=== PATIENT | male | born 1935 | race Caucasian/White ===

== ENCOUNTER 2022-06-06 09:13 | Emergency (ER) | payer MEDICARE, MEDICAID, SELFPAY ==
[2022-06-06] VITALS (8 sets, daily range): BP systolic 76–97; BP diastolic 55–67; PULSE 56–69; RESP 7–14; TEMP 36.4; O2SAT 90–99; BMI 37.5
--- NOTE | 2022-06-06 09:31 | EKG12_ITS ---
Test Reason : ALT LOC Blood Pressure : / mmHG Vent. Rate : 058 BPM Atrial Rate : 000 BPM P-R Int : 000 ms QRS Dur : 102 ms QT Int : 434 ms P-R-T Axes : 000 -05 004 degrees QTc Int : 426 ms Atrial fibrillation with slow ventricular response Abnormal ECG Confirmed by EUGENE JOLLEY, ROSIE ([id number]), medical transcription editor JAYESH GARCIA ([id number]) on 06/09/2022 9:40:51 AM Referred By: ANAIS Confirmed By:LULU KNIGHT MD
--- NOTE | 2022-06-06 09:32 | EDS_ITS ---
HPI <NATASHA Morales - Last Filed: 06/06/22 17:56> History of Present Illness Chief Complaint: Alt LOC Narrative Narrative: 87-year-old male with history of syncope, hypertension who lives at a [facility] facility presents the emergency part for altered mental status. Patient is normally alert and oriented, they were giving his breakfast today when they noticed that he was falling asleep and not answering questions appropriately. There is no evidence of any fever or chills at the facility, patient is arousable however lethargic. Patient is bradycardic, hypotensive. Patient denies any pain. Negative for any injury. [facility] <NATASHA Morales - Last Filed: 06/06/22 17:56> [facility] Medical History (Updated 06/06/22 @ 10:[address] Cesar Rosenberg MD) Acute on chronic diastolic (congestive) heart failure Essential (primary) hypertension Heart failure Lymphocytic colitis Major depressive disorder, recurrent, unspecified Obesity, unspecified Obstructive sleep apnea (adult) (pediatric) Other nonthrombocytopenic purpura Raynaud's syndrome without gangrene Shortness of breath Syncope and collapse Urgency of urination Vitamin B12 deficiency anemia, unspecified Weakness Home Medications albuterol sulfate 0.63 mg/3 mL solution for nebulization 0.63 mg inhalation Q4H PRN PRN Wheezing 06/06/22 [History Last Taken Unknown] albuterol sulfate 90 mcg/actuation aerosol inhaler (ProAir HFA) 1 inh inhalation Q4H PRN PRN sob/ wheezing 06/06/22 [History Last Taken Unknown] aripiprazole 5 mg tablet (Abilify) 5 mg PO QHS 06/06/22 [History Last Taken Unknown] budesonide 3 mg capsule,delayed,extended release 6 mg PO DAILY 06/06/22 [History Last Taken Unknown] cholecalciferol (vitamin D3) 125 mcg (5,000 unit) tablet (Vitamin D3) 125 mcg PO LANZA 06/06/22 [History Last Taken Unknown] divalproex 250 mg tablet,delayed release 250 mg PO BID 06/06/22 [History Last Taken Unknown] ferrous sulfate 325 mg (65 mg iron) tablet 325 mg PO DAILY 06/06/22 [History Last Taken Unknown] furosemide 20 mg tablet (Lasix) 60 mg PO BID 06/06/22 [History Last Taken Unknown] melatonin 1 mg tablet 1 mg PO QHS 06/06/22 [History Last Taken Unknown] metoprolol succinate 25 mg capsule sprinkle, ext. release 24 hr 25 mg PO DAILY 06/06/22 [History Last Taken Unknown] nifedipine 60 mg tablet,extended release 60 mg PO DAILY 06/06/22 [History Last Taken Unknown] potassium chloride 20 mEq tablet,extended release 20 meq PO DAILY 06/06/22 [History Last Taken Unknown] tamsulosin 0.4 mg capsule 0.4 mg PO QHS 06/06/22 [History Last Taken Unknown] Allergy/AdvReac Type Severity Reaction Status Date / Time No Known Allergies Allergy Verified 06/06/22 09:19 Social History Smoking Status: Never smoker ROS <NATASHA Morales - Last Filed: 06/06/22 17:56> ROS ED ROS Narrative Due to the patient is lethargic, a full review of symptoms cannot be completed EXAM <NATASHA Morales - Last Filed: 06/06/22 17:56> Physical Exam Narrative Exam Narrative: Vital signs reviewed. Patient is alert and orient x1, patient immediately falls asleep after being asked any questions. Patient is bradycardic with a systolic blood pressure at 95, patient is bradycardic with a heart rate of 56. Patient does not look toxic. HEET: Head normocephalic atraumatic, TMs clear bilaterally. Posterior pharynx is clear, dry mucous membranes. Nares clear bilaterally. Neck: Supple with no lymphadenopathy or tenderness. No signs of meningismus, negative jolt sign. Cardiac: Bradycardic however body habitus made it difficult to assess heart sounds no murmurs gallops or rubs, equal peripheral pulses bilaterally. Respiratory: Diminished lung sounds, patient was unable to take a deep breath, body habitus made it difficult to assess lung sounds. No chest tenderness. Abdomen: Soft, nontender, nondistended. No abdominal bruit or pulsatile masses. No hepatosplenomegaly Extremities: No peripheral edema, no signs of gross trauma or deformity. Active full range of motion of all extremities. Neuro: Cranial nerves II through XII intact, no focal neurological deficits. Skin: Clean dry and intact with no rash, purpura, petechiae, vesicles or pustules. Backs/flank: No CVA tenderness, no midline spinal tenderness, no deformity. Psych: Normal mood and affect. No SI, HI or acute psychosis. Const Vital Signs: 06/06/22 09:14 06/06/22 10:10 06/06/22 10:45 Temperature 97.5 F L Temperature Source Oral Pulse Rate 56 L 62 63 Respiratory Rate 14 11 L 12 Blood Pressure 89/58 L 92/59 L 88/60 L Blood Pressure Mean 68 70 69 Pulse Ox 98 99 97 Oxygen Delivery Method Room Air Room Air Nasal Cannula Oxygen Flow Rate (L/min) 2 06/06/22 11:15 06/06/22 11:36 06/06/22 12:00 Temperature Temperature Source Pulse Rate 69 57 L 62 Respiratory Rate 9 L 7 L 11 L Blood Pressure 85/60 L 76/55 L 81/67 L Blood Pressure Mean 68 62 71 Pulse Ox 94 90 91 Oxygen Delivery Method Nasal Cannula Nasal Cannula Nasal Cannula Oxygen Flow Rate (L/min) 2 2 2 06/06/22 13:00 06/06/22 18:59 Temperature Temperature Source Pulse Rate 61 Respiratory Rate 12 Blood Pressure 97/66 Blood Pressure Mean 76 Pulse Ox 98 94 Oxygen Delivery Method Nasal Cannula Oxygen Flow Rate (L/min) <Dr. Cesar Rosenberg MD - Last Filed: 06/06/22 22:49> Physical Exam Const Vital Signs: 06/06/22 09:14 06/06/22 10:10 06/06/22 10:45 Temperature 97.5 F L Temperature Source Oral Pulse Rate 56 L 62 63 Respiratory Rate 14 11 L 12 Blood Pressure 89/58 L 92/59 L 88/60 L Blood Pressure Mean 68 70 69 Pulse Ox 98 99 97 Oxygen Delivery Method Room Air Room Air Nasal Cannula Oxygen Flow Rate (L/min) 2 06/06/22 11:15 06/06/22 11:36 06/06/22 12:00 Temperature Temperature Source Pulse Rate 69 57 L 62 Respiratory Rate 9 L 7 L 11 L Blood Pressure 85/60 L 76/55 L 81/67 L Blood Pressure Mean 68 62 71 Pulse Ox 94 90 91 Oxygen Delivery Method Nasal Cannula Nasal Cannula Nasal Cannula Oxygen Flow Rate (L/min) 2 2 2 06/06/22 13:00 06/06/22 18:59 Temperature Temperature Source Pulse Rate 61 Respiratory Rate 12 Blood Pressure 97/66 Blood Pressure Mean 76 Pulse Ox 98 94 Oxygen Delivery Method Nasal Cannula Oxygen Flow Rate (L/min) [facility] <Andrea WanNATASHA hadley - Last Filed: 06/06/22 17:56> [facility] Lab Data Labs: Laboratory Results - last 24 hr 06/06/22 06/06/22 06/06/22 09:22 09:22 09:22 WBC 5.4 RBC 3.54 L Hgb 11.6 L Hct 36.0 L MCV 101.7 H MCH 32.8 H MCHC 32.2 RDW Std Deviation 57.6 H RDW Coeff of Uriel 15.6 H Plt Count 182 MPV 10.2 Immature Gran % (Auto) 1.700 H Neut % (Auto) 70.8 H Lymph % (Auto) 12.8 L Brantley % (Auto) 9.1 Eos % (Auto) 5.2 H Baso % (Auto) 0.4 Absolute Neuts (auto) 3.8 Absolute Lymphs (auto) 0.69 L Nucleated RBC % 0 Sodium 138 Potassium 3.2 L Chloride 98 Carbon Dioxide 36.0 H Anion Gap 4 L BUN 21 H Creatinine 0.80 Estim Creat Clear Calc 65.31 Est GFR (MDRD) Af Amer 118 Est GFR (MDRD) Non-Af 97 BUN/Creatinine Ratio 26.2 H Glucose 108 H Lactic Acid Calcium 8.6 Total Bilirubin 0.50 Direct Bilirubin 0.20 AST 12 L ALT 19 Alkaline Phosphatase 70 Troponin I High Sens 9 Total Protein 6.7 Albumin 2.8 L Globulin 3.9 Urine Color Urine Clarity Urine pH Ur Specific Udall Urine Protein Urine Glucose (UA) Urine Ketones Urine Occult Blood Urine Nitrite Urine Bilirubin Urine Urobilinogen Ur Leukocyte Esterase Urine RBC Urine WBC Ur Squamous Epith Cells Urine Bacteria Urine Mucus 06/06/22 06/06/22 09:40 09:48 WBC RBC Hgb Hct MCV MCH MCHC RDW Std Deviation RDW Coeff of Uriel Plt Count MPV Immature Gran % (Auto) Neut % (Auto) Lymph % (Auto) Brantley % (Auto) Eos % (Auto) Baso % (Auto) Absolute Neuts (auto) Absolute Lymphs (auto) Nucleated RBC % Sodium Potassium Chloride Carbon Dioxide Anion Gap BUN Creatinine Estim Creat Clear Calc Est GFR (MDRD) Af Amer Est GFR (MDRD) Non-Af BUN/Creatinine Ratio Glucose Lactic Acid 1.6 Calcium Total Bilirubin Direct Bilirubin AST ALT Alkaline Phosphatase Troponin I High Sens Total Protein Albumin Globulin Urine Color Yellow Urine Clarity Sl. Cloudy Urine pH 6.0 Ur Specific Udall 1.010 Urine Protein Negative Urine Glucose (UA) Normal Urine Ketones Negative Urine Occult Blood 50 H Urine Nitrite Negative Urine Bilirubin Negative Urine Urobilinogen 1 H Ur Leukocyte Esterase Negative Urine RBC 0 SEEN Urine WBC 0 SEEN Ur Squamous Epith Cells 0 SEEN Urine Bacteria 0 SEEN Urine Mucus 0 SEEN Radiography Diagnostic Testing: Clinical Impression(s) from Imaging Studies Brain CT 06/06/22 09:32 IMPRESSION: Chronic involutional changes of the brain. Electronically Signed: Mann Nelson MD at 10:26 EDT , EKG Atrial fibrillation,: Attestation: I personally reviewed and interpreted this EKG as follows: Comments: Atrial fibrillation with slow ventricular response, rate of 50 bpm, QRS duration 102 ms Treatment and Re-Evaluation Narrative: Follow-upPatient arrived lethargic, alert and oriented x1 only making sounds. Patient's mental status decreased over time he has been to the emergency department. Patient's blood pressure remains 88/60. Patient's EKG shows atrial fibrillation at a rate of 56. .Patient CBC shows slight anemia 11.6, patient potassium slightly low at 3.2, lactic acid was negative. Chest x-ray was unremarkable. CT scan of the brain was unremarkable. Patient's urinalysis was negative for any infection. Patient's heart rate, blood pressure remained low, patient was currently full code however, attending physician called the patient's emergency contact, the daughter was aware of the patient's condition and the decision was made a year ago to change the CODE STATUS to DNR CC. Patient will receive a hospice consult. Patient will go back to his facility, he will with hospice tomorrow. Patient's family is here, made aware. Patient is waiting for transfer to go back to his facility. Again hospice will follow-up tomorrow <Dr. Cesar Rosenberg MD - Last Filed: 06/06/22 22:49> [facility] MDM Narrative Medical decision making narrative: I have personally performed a face to face assessment of the patient and have reviewed the CARON Note. I performed a substantive portion of the visit including all aspects of the following. My diego findings include: History is is very limited. Patient's mental status has deteriorated since seen by the midlevel. He is presently unresponsive to verbal or tactile stimuli. He is snoring. He grimaced with sternal rub. With noxious stimuli pressure on the supraorbital nerve he only grimaced. There was no decorticate or decerebrate posturing. He did did not make any verbal sounds or response. Apparently patient is full code. Exam is patient appears pale. He has a GCS of 3. There is no evidence of head trauma. There is no hemotympanum. Pupils are pinpoint. Gaze is conjugate. There is no scleral icterus. Conjunctive appears pink. Lungs are remarkable for transmission of upper airway sounds since patient is presently snoring. Heart rate is slow and irregular. No appreciable murmur. Abdomen is soft no hepatosplenomegaly. No abdominal bruit. There is no clonus. There is no response to Babinski testing. Medical Decision Making with altered mental status pinpoint pupils need to rule out intracranial process versus metabolic versus infectious. CT of the head was reviewed by me and interpreted by radiologist as no acute findings. CBC is remarkable for mild anemia. Basic metabolic panel reveals an elevated CO2 and decreased potassium. Will obtain VBG to assess acid-base status and CO2. Liver panel is unremarkable. Calcium is unremarkable UA is negative. Review of patient's medications indicates he has not no opiate analgesic. Presently there is no obvious explanation for his altered mental status. Other additions or changes: Emergency contact Nelly Diallo his daughter was called. Spoke with her regarding her father's condition. She states there was a conversation a year ago where he wishes no heroics i.e. no CPR, no intubation no aggressive treatment. She was informed that his [place] Coma Scale was 3 and this is associated with very poor prognosis. She was informed with his history of atrial fibrillation on no anticoagulant and pinpoint pupils suspect embolic phenomenon involving the midbrain and reason for altered mental status. Per discussion over the phone patient was made DNR comfort care only. Document was completed by me. Furthermore, hospice was contacted. Lab Data Attestation: I reviewed the patient's lab results. Labs: Laboratory Results - last 24 hr 06/06/22 06/06/22 06/06/22 09:22 09:22 09:22 WBC 5.4 RBC 3.54 L Hgb 11.6 L Hct 36.0 L MCV 101.7 H MCH 32.8 H MCHC 32.2 RDW Std Deviation 57.6 H RDW Coeff of Uriel 15.6 H Plt Count 182 MPV 10.2 Immature Gran % (Auto) 1.700 H Neut % (Auto) 70.8 H Lymph % (Auto) 12.8 L Brantley % (Auto) 9.1 Eos % (Auto) 5.2 H Baso % (Auto) 0.4 Absolute Neuts (auto) 3.8 Absolute Lymphs (auto) 0.69 L Nucleated RBC % 0 Sodium 138 Potassium 3.2 L Chloride 98 Carbon Dioxide 36.0 H Anion Gap 4 L BUN 21 H Creatinine 0.80 Estim Creat Clear Calc 65.31 Est GFR (MDRD) Af Amer 118 Est GFR (MDRD) Non-Af 97 BUN/Creatinine Ratio 26.2 H Glucose 108 H Lactic Acid Calcium 8.6 Total Bilirubin 0.50 Direct Bilirubin 0.20 AST 12 L ALT 19 Alkaline Phosphatase 70 Troponin I High Sens 9 Total Protein 6.7 Albumin 2.8 L Globulin 3.9 Urine Color Urine Clarity Urine pH Ur Specific Udall Urine Protein Urine Glucose (UA) Urine Ketones Urine Occult Blood Urine Nitrite Urine Bilirubin Urine Urobilinogen Ur Leukocyte Esterase Urine RBC Urine WBC Ur Squamous Epith Cells Urine Bacteria Urine Mucus 06/06/22 06/06/22 09:40 09:48 WBC RBC Hgb Hct MCV MCH MCHC RDW Std Deviation RDW Coeff of Uriel Plt Count MPV Immature Gran % (Auto) Neut % (Auto) Lymph % (Auto) Brantley % (Auto) Eos % (Auto) Baso % (Auto) Absolute Neuts (auto) Absolute Lymphs (auto) Nucleated RBC % Sodium Potassium Chloride Carbon Dioxide Anion Gap BUN Creatinine Estim Creat Clear Calc Est GFR (MDRD) Af Amer Est GFR (MDRD) Non-Af BUN/Creatinine Ratio Glucose Lactic Acid 1.6 Calcium Total Bilirubin Direct Bilirubin AST ALT Alkaline Phosphatase Troponin I High Sens Total Protein Albumin Globulin Urine Color Yellow Urine Clarity Sl. Cloudy Urine pH 6.0 Ur Specific Udall 1.010 Urine Protein Negative Urine Glucose (UA) Normal Urine Ketones Negative Urine Occult Blood 50 H Urine Nitrite Negative Urine Bilirubin Negative Urine Urobilinogen 1 H Ur Leukocyte Esterase Negative Urine RBC 0 SEEN Urine WBC 0 SEEN Ur Squamous Epith Cells 0 SEEN Urine Bacteria 0 SEEN Urine Mucus 0 SEEN Radiography Diagnostic Testing: Clinical Impression(s) from Imaging Studies Brain CT 06/06/22 09:32 IMPRESSION: Chronic involutional changes of the brain. 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, at arrival to emergency department, Atrial fibrillation, chronic, Bradycardia on ECG Instructions: Hospice Managing Pain, Understanding DNR Orders, AFib Prescriptions: No Action tamsulosin 0.4 mg Capsule 0.4 mg PO QHS albuterol sulfate [ProAir HFA] 90 mcg/actuation Hfa Aerosol Inhaler 1 inh INHALATION Q4H PRN PRN (Reason: sob/ wheezing) nifedipine 60 mg Tablet Extended Release 60 mg PO DAILY melatonin 1 mg Tablet 1 mg PO QHS cholecalciferol (vitamin D3) [Vitamin D3] 125 mcg (5,000 unit) Tablet 125 mcg PO LANZA potassium chloride 20 mEq Tablet Extended Release 20 meq PO DAILY metoprolol succinate 25 mg Capsule,Sprinkle,Er 24hr 25 mg PO DAILY albuterol sulfate 0.63 mg/3 mL Solution For Nebulization 0.63 mg INHALATION Q4H PRN PRN (Reason: Wheezing) divalproex 250 mg Tablet,Delayed Release (Dr/Ec) 250 mg PO BID ferrous sulfate 325 mg (65 mg iron) Tablet 325 mg PO DAILY furosemide [Lasix] 20 mg Tablet 60 mg PO BID budesonide 3 mg Capsule,Delayed,Extend.Release 6 mg PO DAILY aripiprazole [Abilify] 5 mg Tablet 5 mg PO QHS Primary Care Provider: Katy Palm Referrals: Katy Palm MD [Primary Care Provider] - Disposition Disposition: Care Home Facility Discharge Location: [facility] Discharge Date/Time: 06/06/22 19:01
--- NOTE | 2022-06-06 09:32 | CT_ITS ---
STUDY: CT BRAIN WITHOUT CONTRAST REASON FOR EXAM: Male, 87 years old. Altered mental status. RADIATION DOSAGE (If Supplied By Facility): CTDIvol = ( 44.99 ) mGy, DLP = ( 829.85 ) mGycm TECHNIQUE: Transaxial CT imaging of the brain was performed without administration of intravenous contrast material. Individualized dose optimization techniques were used for this CT. COMPARISON: No relevant priors. FINDINGS: Normal soft tissue structures. Normal calvarium. There is moderate cerebral atrophy with widening of the extra-axial spaces and ventricular dilatation. There are areas of decreased attenuation within the white matter tracts of the supratentorial brain, consistent with microvascular disease changes. Normal basal ganglia and thalami. Normal brainstem. Normal cerebellum. There is no intracranial hemorrhage. There are no findings of an acute ischemic infarction. Atherosclerotic calcification of the cavernous portions of the carotid arteries bilaterally. Normal visualized paranasal sinuses. CT/Brain/Head without Contrast IMPRESSION: Chronic involutional changes of the brain. Electronically Signed: Mann Nelson MD at 10:26 EDT ,
[2022-06-06] MEDS: 0.9% Normal Saline 1,000 ML 1000 ML IV (09:37)
[2022-06-06 09:41] LABS: Absolute Lymphocyte Count 0.69 X10^3/uL (0.83-4.51); Absolute Neutrophil Count 3.8 X10^3/uL (2.0-7.7); Basophil# 0.02 X10^3/uL; Basophil% 0.4 % (0-1); Eosinophil# 0.28 X10^3/uL; Eosinophils% 5.2 % (0-5); Hemoglobin 11.6 g/dL (13.0-16.5); Lymphocyte # 0.69 X10^3/ul (0.83-4.51); Lymphocyte % 12.8 % (19-41); Mean Corp Hgb Conc 32.2 g/dL (32-36); Mean Corpuscular Hgb 32.8 pg (27.0-32.0); Mean Corpuscular Volume 101.7 fL (80-94); Mean Platelet Vol. 10.2 fl (6.2-12.0); Monocyte# 0.49 X10^3/uL; Monocyte% 9.1 % (0-10); NRBC Flagged by Analyzer 0 % (0-5); Neutrophil # 3.84 X10^3/uL (2.7-7.7); Neutrophil % 70.8 % (47-70); Platelet Count 182 K/mm3 (150-450); RBC Distribution Width CV 15.6 % (11.6-14.6); RBC Distribution Width SD 57.6 fl (35.1-43.9); Red Blood Count 3.54 M/mm3 (4.6-6.2); White Blood Count 5.4 K/mm3 (4.4-11.0)
[2022-06-06 09:56] LABS: Anion Gap 4 (5-15); BUN 21 mg/dL (7-18); BUN/Creat Ratio 26.2 RATIO (10-20); Calcium,Total 8.6 mg/dL (8.5-10.1); Chloride 98 mmol/L (98-107); EST Glomerular Filtration Rate 97 mL/min (>60); Est Glom Filt Rate - Afr Amer 118 mL/min (>60); Estimated Creatinine Clearance 65.31 ml/min; Glucose 108 mg/dL (74-106); Potassium 3.2 mmol/L (3.5-5.1); Sodium Level 138 mmol/L (136-145); Troponin-I HS 9 pg/mL (3.0-78.0)
[2022-06-06 10:00] LABS: AST(SGOT) 12 U/L (15-37); Alanine Aminotransfer ALT/SGPT 19 U/L (16-61); Albumin, Serum 2.8 g/dL (3.2-5.0); Alkaline Phosphatase 70 U/L (45-117); Globulin 3.9 g/dL (2.2-4.2); Protein, Total 6.7 g/dL (6.4-8.2)
[2022-06-06 10:01] LABS: Bacteria 0 SEEN /hpf (None Seen); Mucous, Urine 0 SEEN /hpf (<or=2+); Red Blood Cells-Urine 0 SEEN /hpf (0-5); Squamous Epithelial Cells - UA 0 SEEN /hpf (0-5); White Blood Cells 0 SEEN /hpf (0-5)
[2022-06-06 10:12] LABS: Color, Urine Yellow (Yellow); Glucose, Dipstick Normal (Normal); Ketone-Dipstick Negative (Negative); Leukocyte Esterase-Dipstick Negative /ul (Negative); Nitrite-Dipstick Negative (Negative); Occult Blood-Urine 50 /ul (Negative); Protein-Dipstick Negative (Negative); Urine Bilirubin Dipstick Negative (Negative); Urine Clarity Sl. Cloudy (Clear); Urine Urobilinogen 1 mg/dl (Normal)
[2022-06-06 10:38] LABS: Lactic Acid 1.6 mmol/L (0.4-1.9)
--- NOTE | 2022-06-06 10:55 | ED.RN ---
Pt placed on EtCO2- 36-45, having periods of apnea, responds minimally to deep painful stimuli. Dr. Rosenberg aware
--- NOTE | 2022-06-06 11:40 | ED.RN ---
Family at bedside currently, patient continues to be minimally deep painful stimulated.
--- NOTE | 2022-06-06 14:00 | ED.RN ---
Hospice to contact family, daughter is leaving ED at this time to await the phone call from Hospice
--- NOTE | 2022-06-06 14:23 | NURSING ---
[facility] WITH HOSPICE CALLED. MIK CAMPOS WILL BE HERE BETWEEN 3 AND 330. SHE SPOKE WITH THE PTS DAUGHTER WHO WILL ALSO BE HERE
--- NOTE | 2022-06-06 14:29 | ED.RN ---
Hospice to arrive for this patient between [id number], no change to mentation.
--- NOTE | 2022-06-06 17:21 | ED.RN ---
THIS RN CALLED REPORT BACK TO MER FORTUNE AT [facility]. SHE VERBALIZED UNDERSTANDING THAT PATIENT WAS RETURNING TO FACILITY ON HOSPICE CARE. 90 MIN ETA FOR TRANSPORT BACK TO FACILITY
--- NOTE | 2022-06-06 17:46 | CM.ED ---
Social Work Note SW updated that Hospice is requesting to speak to this worker. SW met with Hospice staff. Hospice states that pt signed with Hospice paperwork and asked if pt will be discharged back [facility] as pt is not in any pain. SW informed Hospice staff that if pt is from [facility] then the plan would likely be back to [facility] with Hospice. Hospice asked when pt would be discharged. SW explained that it would likely be tonight since pt signed with Hospice. Hospice request discharge paperwork to be faxed to them once completed. [place] to arrange transportation. Plan: Return to [facility] with Hospice Aicha Samuels FORM SETTER, RESIDENTIAL SUPERVISOR
--- NOTE | 2022-06-06 19:11 | CM.ED ---
Social Work Note SW faxed ED discharge paperwork to [facility]. Aicha Samuels SKIDDER OPERATOR, LOCKSTITCH POCKET SETTER
== END 2022-06-06 19:01 | disposition skilled nursing facility (03) ==
PROVIDERS: Nurse Practitioner; Emergency Provider Emergency Medicine; PCP Internal Medicine; Visit Provider Emergency Medicine
DX: I63.9 Cerebral infarction, unspecified (principal); I11.0 Hypertensive heart disease with heart failure; I50.9 Heart failure, unspecified; I48.20 Chronic atrial fibrillation, unspecified; I95.9 Hypotension, unspecified; D64.9 Anemia, unspecified; R00.1 Bradycardia, unspecified; F32.A Depression, unspecified; G47.33 Obstructive sleep apnea (adult) (pediatric); Z79.899 Other long term (current) drug therapy
CPT/HCPCS: 51701; 70450; 80048; 80076; 81001; 83605; 84484; 85025; 87077; 87086; 87088; 93005; 96360; 99285; J7030; P9612